=== PATIENT | male | born 1975 | race Caucasian/White ===

== ENCOUNTER 2016-10-27 10:16 | Emergency (ER) | payer MEDICAID ==
[~2016-10-27] VITALS: Ht 185.4 cm; Wt 99.6 kg
[2016-10-27 13:34] LABS: UA SPECIFIC GRAVITY >=1.030 (1.005-1.035); microscopic required? YES; urine erythrocyte TRACE (NEGATIVE)
[2016-10-27 15:19] VITALS: BP 139/92
[2016-10-28 09:25] LABS: RAPID PLASMA REAGIN Non Reactive (Non Reactive)
== END 2016-10-27 15:19 | disposition home or self-care (01) ==
LOC: ED 10:16
PROVIDERS: Emergency Medicine
DX: N45.2 Orchitis (principal)
CPT/HCPCS: 87491; 87591; J0696; J1885